=== PATIENT | male | born 1980 | race Caucasian/White ===

== ENCOUNTER 2023-09-29 02:05 | Emergency (ER) | payer OTHER, SELFPAY ==
[2023-09-29 02:21] VITALS: BP 142/90
[2023-09-29 02:49] LABS: % Basophils 0.7 % (0-2); % Eosinophils 1.4 % (0-6); % Immature Granulocytes 0.4 % (0-0.5); % Lymphocytes 29.8 % (20.5-51.1); % Monocytes 9.1 % (1.7-9.3); % Neutrophils 58.6 % (42.2-75.2); Absolute Eosinophils 0.1 10^3/uL (0-0.7); Absolute Lymphocytes 1.7 10^3/uL (1.2-3.4); Absolute Monocytes 0.5 10^3/uL (0.1-0.6); Absolute Neutrophils 3.4 10^3/uL (1.4-6.5); Hematocrit 46.4 % (39.0-52.0); Hemoglobin 16.6 g/dL (13.0-18.0); Mean Corp Hgb Conc. 35.8 g/dL (33.0-37.0); Mean Corpuscular Hgb 31.3 pg (27.0-31.0); Mean Corpuscular Volume 87.5 fL (80.0-94.0); Mean Platelet Volume 10.1 fL (7.4-10.4); Nucleated Red Blood Cells % 0 % (-); Platelet Count 218 10^3/uL (130-400); Red Cell Dist. Width 11.5 % (11.5-14.5); White Blood Cell Count 5.7 10^3/uL (4.8-10.8)
[2023-09-29 03:00] LABS: ALT (SGPT) 36 U/L (0-50); AST (SGOT) 22 U/L (17-59); Albumin 4.2 g/dl (3.5-5.0); Alkaline Phosphatase 64 U/L (38-126); Blood Urea Nitrogen 15 mg/dl (9-20); Calcium 9.7 mg/dl (8.4-10.2); Carbon Dioxide 25 mmol/L (22-30); Chloride 107 mmol/L (98-107); Glucose 98 mg/dl (70-99); Lipase 179 U/L (23-300); Potassium 3.8 mmol/L (3.5-5.1); Sodium 141 mmol/L (135-145); Total Bilirubin 0.7 mg/dl (0.2-1.3); Total Protein 6.9 g/dl (6.3-8.2); eGFR > 60.00
[2023-09-29] MEDS: TORADOL 30 MG IV (03:11)
[2023-09-29] MEDS: NSS 1000 IV (03:12)
[2023-09-29 03:13] VITALS: BP 131/70
[2023-09-29 03:14] VITALS: BMI 31.2
--- NOTE | 2023-09-29 03:24 | ED.GENMED ---
History of Present Illness
General
Chief Complaint: Abdominal Pain
Source: patient
Exam Limitations: none
Time Seen by Provider: 09/29/23 02:45
Nursing documentation reviewed up to this point in time: agreed with
Travel History
Have you had any contact with someone who has COVID-19?: No
Do you have any symptoms of coronavirus? Fever > 100 degrees, chills, cough, shortness of breath, sore throat, loss of taste or smell, muscle aches, or headache?: No
History of Present Illness
History of Present Illness:
This is a 43-year-old gentleman with no significant past medical history who complains of intermittent right upper quadrant pain that began 2 days ago, initially accompanied with nausea and vomiting. He felt improved yesterday however passed a few
loose nonbloody stools yesterday but right upper quadrant pain returned this evening and has been persistent, moderate in nature, nonradiating. No recurrent nausea nor vomiting, no recurrent diarrhea. No history of similar episodes in the past.
He denies flank pain, no dysuria and urgency and or hematuria. He denies fever nor chills. No chest pain or coughing or shortness of breath.
He takes no medicines on a daily basis.
No definitive aggravating or relieving factors.
Past History
Past History
ED Past Medical History: None
ED Past Surgical History: None
Social History
Tobacco: Non-smoker
Alcohol: Occasional
Drug: Marijuana (Occasional gummy)
Personal:
Living: with family
Employment: Employed
Family History
Family History: Other (Noncontributory)
Phy Exam
Physical Exam
Physical Exam:
GENERAL: 43-year-old gentleman appears his stated age, awake and alert, pleasant, appears mildly uncomfortable related to pain.
EYE: anicteric
NECK: Supple, nontender, no meningismus, no significant adenopathy.
ENT: oral mucosa is moist. No rhinorrhea.
CARDIAC: Regular rate and rhythm. no murmur.
LUNGS: Clear breath sounds bilaterally, no acute respiratory distress, no wheezes/rales/rhonchi
ABDOMEN: Soft, nondistended, moderate tenderness right upper quadrant as well as mild tenderness epigastric region, no r/g, no cvat. No palpable masses, normoactive BS.
NEUROLOGICAL: Alert and oriented x3, no focal neuro deficits. Gait is zaragoza and steady.
SKIN: Warm and dry, normal color, skin intact. No rash.
MUSCULOSKELETAL: No C/C/E. peripheral pulses are full and equal b/l. No palpable tenderness.
PSYCH: Normal and appropriate interaction.
Course
Orders/Labs/Results
Orders:
Orders
09/29/23 02:38
Complete Blood Count/With Diff Urgent
Comprehensive Metabolic Panel Urgent
Lipase Urgent
09/29/23 02:46
Urinalysis Reflex To Culture Urgent
09/29/23 03:05
0.9% Sodium Chloride 1000 ml [Nss] 1,000 ml IV BOLUS
Ketorolac [Toradol] 30 mg IV NOW STA
09/29/23 03:06
US Abdomen Complete/Upper Urgent
Comment:
Reason For Exam: RUQ abd pain x 2 days
09/29/23 04:53
CT Abd/pelvis W Iv Cont Urgent
Comment:
Reason For Exam: RUQ abd pain x 2 days
Abnormal Lab Results
09/29/23
02:38
MCH 31.3 H pg
(27.0-31.0)
09/29/23 02:38
09/29/23 02:38
Vital Signs
Initial and Last Documented VS:
Initial Vital Signs
Temp Pulse Resp BP Pulse Ox
97.9 F 49 22 142/90 97
09/29/23 02:21 09/29/23 02:21 09/29/23 02:21 09/29/23 02:21 09/29/23 02:21
Last Documented Vital Signs
Temp Pulse Resp BP Pulse Ox
97.9 F 52 17 148/104 99
09/29/23 02:21 09/29/23 05:05 09/29/23 05:05 09/29/23 06:00 09/29/23 06:15
MDM/Problems Addressed
Differential Diagnosis Includes:
Concern for acute biliary colic, cholecystitis, pancreatitis, renal colic/right ureteric stone, gastroduodenitis, gastroenteritis, appendicitis, epiploic appendagitis, right-sided diverticulitis.
Will check labs as well as urinalysis.
Will medicate for pain with IV Toradol and will plan for abdominal ultrasound.
*Radiology
Radiology exam reviewed: radiology read reviewed (Abdominal ultrasound as well as CT of the abdomen pelvis are all unremarkable)
*Pulse Oximetry
Patient hypoxic: no
*Critical Care Note
Total Time (30-74mins, 75-104mins- exclusive of procedures): Not Applicable
Update Note
Update Note:
09/29/2023 0639 AM
Patient reports moderate improvement in pain after IV Toradol, overall continues to appear comfortable.
Labs are unremarkable, all within normal limits.
Abdominal ultrasound is unremarkable as is CT of the abdomen and pelvis showing no acute intra-abdominal findings.
With reassuring labs, unremarkable ultrasound and CAT scan, I suspect right upper quadrant abdominal pain is musculoskeletal in nature such as an abdominal wall muscle strain.
Recommend supportive measures, ibuprofen versus Tylenol, local heat, avoid heavy lifting.
As patient suffered some vomiting 2 days ago and loose stools yesterday recommend bland soft foods today.
Prompt follow-up with PCP for recheck.
Return precautions discussed.
ED Attending Note
-
Portions of this chart may have been created with voice recognition software.� Occasional wrong word or��sound alike� substitutions may have occurred due to the inherent limitations of voice recognition software.
Discharge Plan
Departure
Patient Disposition: Home (Routine Discharge)
Date of Disposition: 09/29/23
Time of Disposition: 06:37
Patient with high blood pressure during this ER visit?: Yes
Condition: Good
Discharge Problem:
Abdominal pain, acute, right upper quadrant, abdominal wall muscle strain
Instructions: Blackwell Diet, Abdominal Muscle Strain (DC)
Referrals:
Ari Driver MD [Family Provider] - Call in 1-3 days for appt
Interventions
Interventions:
*Risk Screen - Suicide Last Done: 09/29/23 03:14
*General Assessment Last Done: 09/29/23 02:21
*Neglect/Abuse Screening Last Done: 09/29/23 02:21
ED- Fall Risk Assessment Last Done: 09/29/23 02:21
*ED COVID-19 Vaccine History Last Done: 09/29/23 02:21
FN-Aevdtd-Ghyasbcabg Assessment Last Done: 09/29/23 02:41
Discharge Date and Time
Print Language: DUTCH
[2023-09-29 04:58] VITALS: BP 152/94
[2023-09-29 05:00] VITALS: BP 153/96
[2023-09-29 05:51] VITALS: BP 135/91
[2023-09-29 06:00] VITALS: BP 148/104
== END 2023-09-29 06:44 | disposition home or self-care (01) ==
LOC: EMR 02:05
PROVIDERS: EMERGENCY PHYSICIAN Emergency Medicine; FAMILY PHYSICIAN Family Medicine
DX: R10.11 Right upper quadrant pain (principal); S39.011A Strain of muscle, fascia and tendon of abdomen, initial encounter; X58.XXXA Exposure to other specified factors, initial encounter; R11.2 Nausea with vomiting, unspecified
CPT/HCPCS: 99284; 74177; 76700; 80053; 83690; 85025; Q9967

== ENCOUNTER 2025-04-30 06:31 | Day surgery (SDC) | payer OTHER, SELFPAY ==
[2025-04-23 13:35] VITALS: BMI 29.3
[2025-04-23 16:05] LABS: Blood Urea Nitrogen 15 mg/dl (9-20); Calcium 9.9 mg/dl (8.4-10.2); Carbon Dioxide 28 mmol/L (22-30); Chloride 106 mmol/L (98-107); Estimated Creatinine Clearance 92 ml/min; Glucose 91 mg/dl (70-99); Potassium 4.6 mmol/L (3.5-5.1); Sodium 138 mmol/L (135-145); eGFR > 60.00
[2025-04-30 11:38] VITALS: BMI 29.3
[2025-04-30 11:44] VITALS: BP 104/70
[2025-04-30] MEDS: TYLENOL 1000 MG PO (11:53)
[2025-04-30] MEDS: NORMOSOL-R/PLASMALYTE-A 1000 IV (11:53)
[2025-04-30 16:49] VITALS: BP 104/70; BP 125/82
[2025-04-30 17:00] VITALS: BP 115/66
[2025-04-30 17:15] VITALS: BP 119/72
--- NOTE | 2025-04-30 17:17 | W.IMMPOSTOP ---
Surgical Immed Post Op Note
-
Primary Surgeon: Max Coley MD
Assisting Surgeon: Darrel Reyes PA-C
Pre-op Diagnosis: right shoulder rotator cuff tear
Post-op Diagnosis: right shoulder rotator cuff tear
Procedure Performed: arthroscopic right rotator cuff repair
Anesthesia Type: general, regional
Specimen / Cultures: none
Estimated Blood Loss: 5mL
Complications: none apparent
Operative Findings: musculotendinous junction tear of supraspinatus/infraspinatus
Operative dictation#: [id number]
[2025-04-30 17:30] VITALS: BP 115/78
[2025-04-30 17:49] VITALS: BP 127/71
== END 2025-04-30 17:54 | disposition home or self-care (01) ==
LOC: SDS 06:31
PROVIDERS: ATTENDING PHYSICIAN Student in an Organized Health Care Education/Training Program; FAMILY PHYSICIAN Family Medicine
DX: M75.111 Incomplete rotator cuff tear or rupture of right shoulder, not specified as traumatic (principal)
CPT/HCPCS: 29827; 36415; 80048